=== PATIENT | female | born 1995 | race Caucasian/White ===

== ENCOUNTER 2020-04-17 18:19 | Emergency (ER) | payer SELFPAY ==
[~2020-04-17] VITALS: Ht 170.2 cm; Wt 65.9 kg
[~2020-04-17 18:19] MED LIST: ABILIFY5 MG PO; ADVIL200 MG PO; ALBUTEROL INHALER; AMOXICILLIN 50500 MG PO; ANTIVERT 25MG25 MG PO; BIRTHCONTROL; DEPAKOTE500 MG PO; DEPO MEDROL80 MG/ML IJ; DEPO-PROVER150 MG/M1 IM; DESYREL 50MG50 MG PO; FLAGYL500 MG PO; IBUPROFEN2; KLOR-CON M2020 MEQ PO; LAMICTAL 25MG T25 MG PO; LATUDA40 MG PO; LEXAPRO 10MG10 MG PO; LEXAPRO20 MG PO; MIRENA52 MG IU; MOTRIN 600600 MG/TAB PO; NAPROSYN500 MG PO; NO HOME MEDICATIONS; NORCO 325 MG-51 TAB PO; NORCO 325 MG-7.1 TAB PO; PEN-VEE K500 MG PO; PEPCID 20MG TAB20 MG PO; PERCOCET 325 MG1 TA2 PO; PHENERGAN 25 TA25 MG PO; PHENERGAN25 MG RC; PRENATAL1 TA1 PO; PRILOTC; PROAIR HFA0.09 MG/AC; SEPTRA SUS200/5-40/5 PO; SEROQUEL 1100 MG/TAB PO; SEROQUEL 200MG200 MG PO; SEROQUEL XR300 MG PO; SEROQUEL XR50 MG PO; TYLENOL 325MG325 MG PO; ULTRAM 50MG TAB50 MG PO; VENTOLIN0.09 MG IH; ZOFRAN 4MG T4 MG/TAB PO; ZOFRAN ODT4 MG PO; ZOFRAN ODT8 MG PO; ZOLOFT 100MG100 MG PO
[2020-04-17 18:24] VITALS: TEMP 97.8
[2020-04-17 18:59] LABS: COLLECTION METHOD CLEAN CATCH
[2020-04-17 19:04] LABS: BASO # 0.1 (0.0-0.2); BASO % 0.8 % (0.0-2.0); EOS # 0.4 (0.0-0.7); EOS % 5.9 % (0-4.0); GRAN # 3.6 (1.4-6.5); GRAN % 58.2 % (42.2-75.2); HEMOGLOBIN 13.6 g/dl (12.5-16.0); LYMPH # 1.7 (1.2-3.4); LYMPH % 27.2 % (20.0-51.0); MEAN CELL VOLUME 91 fl (80.0-100.0); MEAN CORPUSCULAR HEMOGLOBIN 29 pg (27.0-31.0); MEAN CORPUSCULAR HGB CONC 32 g/dl (33.0-37.0); MEAN PLATELET VOLUME 10.5 fl (7.4-10.4); MONO # 0.5 (0.1-0.6); MONO % 7.7 % (1.7-9.3); PLATELET COUNT 204 K/mm3 (130-400); RED BLOOD COUNT 4.62 M/mm3 (4.10-5.30); REDCELL DISTRIBUTION WIDTH-CV 12.3 % (11.5-14.5)
[2020-04-17 19:07] LABS: MUCOUS Present /lpf; PH 5 (5-8); SQUAMOUS EPITHELIAL 0-2 /hpf; URINE APPEARANCE Clear; URINE BACTERIA None Seen /hpf; URINE BILIRUBIN Negative (NEGATIVE); URINE BLOOD Negative (NEGATIVE); URINE COLOR Yellow; URINE GLUCOSE Negative (NEGATIVE); URINE KETONE Negative (NEGATIVE); URINE LEUKOCYTE ESTERASE Negative (NEGATIVE); URINE NITRATE Negative (NEGATIVE); URINE PROTEIN(semi-quant) Negative (NEGATIVE); URINE RBC 0-2 /hpf
[2020-04-17 19:13] LABS: ALANINE AMINOTRANSFERASE 11 U/L (4-34); ALBUMIN 4.1 gm/dL (3.5-5.0); ALKALINE PHOSPHATASE 95 U/L (50-136); ANION GAP 6 mmol/L (7-16); AST,SGOT 17 U/L (15-37); BILIRUBIN,TOTAL 0.4 mg/dL (0.0-1.0); BLOOD UREA NITROGEN 9 mg/dL (7-17); CALCIUM 9.2 mg/dL (8.4-10.2); CARBON DIOXIDE 27 mmol/L (22-30); CHLORIDE 105 mmol/L (98-107); CREATININE, serum 0.62 (0.52-1.25); GLUCOSE 81 mg/dL (74-106); POTASSIUM 3.8 mmol/L (3.4-5.0); SODIUM 139 mmol/L (137-145)
[2020-04-17 19:14] LABS: C-REACTIVE PROTEIN < 0.5 mg/dL (0.0-0.9)
[2020-04-17 19:35] VITALS: BP 110/78; PULSE 78
== END 2020-04-17 19:35 | disposition home or self-care (01) ==
LOC: COL.ER 18:19
PROVIDERS: Emergency Medicine
DX: R53.81 Other malaise (principal); R53.83 Other fatigue; F17.210 Nicotine dependence, cigarettes, uncomplicated; Z98.51 Tubal ligation status

== ENCOUNTER 2020-08-04 00:32 | Emergency (ER) | payer SELFPAY ==
[~2020-08-04] VITALS: Ht 170.2 cm; Wt 66.8 kg
[2020-08-04 00:46] VITALS: TEMP 97.9
[2020-08-04 01:11] LABS: COLLECTION METHOD CLEAN CATCH
[2020-08-04 01:18] LABS: MUCOUS Present /lpf; PH 5 (5-8); SQUAMOUS EPITHELIAL 0-2 /hpf; URINE APPEARANCE Clear; URINE BACTERIA None Seen /hpf; URINE BILIRUBIN Negative (NEGATIVE); URINE BLOOD Negative (NEGATIVE); URINE COLOR Yellow; URINE GLUCOSE Negative (NEGATIVE); URINE KETONE Trace (NEGATIVE); URINE LEUKOCYTE ESTERASE Negative (NEGATIVE); URINE NITRATE Negative (NEGATIVE); URINE PROTEIN(semi-quant) Negative (NEGATIVE); URINE RBC 0-2 /hpf
[2020-08-04 02:12] LABS: BASO # 0.1 (0.0-0.2); BASO % 1.1 % (0.0-2.0); EOS # 0.3 (0.0-0.7); EOS % 5.6 % (0-4.0); GRAN # 2.3 (1.4-6.5); GRAN % 42.9 % (42.2-75.2); HEMATOCRIT 41.9 % (37.0-47.0); LYMPH # 2.1 (1.2-3.4); LYMPH % 39.5 % (20.0-51.0); MEAN CELL VOLUME 87 fl (80.0-100.0); MEAN CORPUSCULAR HEMOGLOBIN 29 pg (27.0-31.0); MEAN CORPUSCULAR HGB CONC 33 g/dl (33.0-37.0); MEAN PLATELET VOLUME 10.6 fl (7.4-10.4); MONO # 0.6 (0.1-0.6); MONO % 10.9 % (1.7-9.3); PLATELET COUNT 199 K/mm3 (130-400); RED BLOOD COUNT 4.81 M/mm3 (4.10-5.30)
[2020-08-04 02:27] LABS: ALBUMIN 4.6 gm/dL (3.5-5.0); BILIRUBIN,TOTAL 0.4 mg/dL (0.0-1.0); CALCIUM 9.1 mg/dL (8.4-10.2); CREATININE, serum 0.64 (0.52-1.25); POTASSIUM 3.9 mmol/L (3.4-5.0)
[2020-08-04] MEDS ORDERED: ZOFRAN ODT4 MG PO (02:38)
[2020-08-04 02:50] VITALS: BP 115/68; PULSE 100
== END 2020-08-04 02:50 | disposition home or self-care (01) ==
LOC: COL.ER 00:32
PROVIDERS: Family Medicine
DX: R11.2 Nausea with vomiting, unspecified (principal); F17.210 Nicotine dependence, cigarettes, uncomplicated; Z88.8 Allergy status to other drugs, medicaments and biological substances; Z32.02 Encounter for pregnancy test, result negative

== ENCOUNTER 2020-08-11 23:15 | Emergency (ER) | payer SELFPAY ==
[~2020-08-11] VITALS: Ht 170.2 cm; Wt 68.6 kg
[2020-08-12 01:15] LABS: COLLECTION METHOD CLEAN CATCH
[2020-08-12 01:23] LABS: MUCOUS Present /lpf; PH 5 (5-8); SQUAMOUS EPITHELIAL 0-2 /hpf; URINE APPEARANCE Clear; URINE BACTERIA None Seen /hpf; URINE BILIRUBIN Negative (NEGATIVE); URINE BLOOD 2+ (NEGATIVE); URINE COLOR Yellow; URINE GLUCOSE Negative (NEGATIVE); URINE KETONE Negative (NEGATIVE); URINE LEUKOCYTE ESTERASE Negative (NEGATIVE); URINE NITRATE Negative (NEGATIVE); URINE PROTEIN(semi-quant) Negative (NEGATIVE); URINE RBC 0-2 /hpf
[2020-08-12 01:55] VITALS: BP 142/68; PULSE 73; TEMP 98
== END 2020-08-12 01:57 | disposition home or self-care (01) ==
LOC: COL.ER 23:15
PROVIDERS: Nurse Practitioner
DX: R10.2 Pelvic and perineal pain (principal); R11.2 Nausea with vomiting, unspecified; Z88.8 Allergy status to other drugs, medicaments and biological substances
CPT/HCPCS: J1885; J2550

== ENCOUNTER 2020-10-07 22:50 | Emergency (ER) | payer SELFPAY ==
[~2020-10-07] VITALS: Ht 170.2 cm; Wt 69.1 kg
[2020-10-07 23:55] VITALS: TEMP 98
[2020-10-08] MEDS ORDERED: ZOFRAN ODT4 MG PO (02:12)
[2020-10-08 02:21] VITALS: BP 114/67; PULSE 94
== END 2020-10-08 02:20 | disposition home or self-care (01) ==
LOC: COL.ER 22:50
DX: R11.10 Vomiting, unspecified (principal); F17.210 Nicotine dependence, cigarettes, uncomplicated; Z20.822 Contact with and (suspected) exposure to COVID-19; Z88.8 Allergy status to other drugs, medicaments and biological substances

== ENCOUNTER 2020-10-10 23:27 | Emergency (ER) | payer SELFPAY ==
[~2020-10-10] VITALS: Ht 170.2 cm; Wt 70.5 kg
[2020-10-10 23:39] VITALS: BP 121/87; TEMP 98.4
[2020-10-11 01:19] LABS: BASO # 0.1 (0.0-0.2); BASO % 0.9 % (0.0-2.0); EOS # 0.3 (0.0-0.7); EOS % 5.4 % (0-4.0); GRAN # 2.7 (1.4-6.5); GRAN % 51.1 % (42.2-75.2); HEMATOCRIT 41.3 % (37.0-47.0); HEMOGLOBIN 13.4 g/dl (12.5-16.0); LYMPH # 1.8 (1.2-3.4); LYMPH % 32.8 % (20.0-51.0); MEAN CELL VOLUME 90 fl (80.0-100.0); MEAN CORPUSCULAR HEMOGLOBIN 29 pg (27.0-31.0); MEAN CORPUSCULAR HGB CONC 32 g/dl (33.0-37.0); MEAN PLATELET VOLUME 10.4 fl (7.4-10.4); MONO # 0.5 (0.1-0.6); MONO % 9.6 % (1.7-9.3); PLATELET COUNT 210 K/mm3 (130-400); RED BLOOD COUNT 4.58 M/mm3 (4.10-5.30); REDCELL DISTRIBUTION WIDTH-CV 12.2 % (11.5-14.5)
[2020-10-11 01:29] LABS: ALBUMIN 4.1 gm/dL (3.5-5.0); BILIRUBIN,TOTAL 0.2 mg/dL (0.0-1.0); CREATININE, serum 0.67 (0.52-1.25); POTASSIUM 3.8 mmol/L (3.4-5.0); TOTAL PROTEIN 6.6 gm/dL (6.4-8.2)
[2020-10-11 02:00] LABS: COLLECTION METHOD CLEAN CATCH
[2020-10-11 02:07] LABS: MUCOUS Present /lpf; PH 5 (5-8); URINE APPEARANCE Hazy; URINE BACTERIA None Seen /hpf; URINE BILIRUBIN Negative (NEGATIVE); URINE BLOOD 3+ (NEGATIVE); URINE COLOR Yellow; URINE GLUCOSE Negative (NEGATIVE); URINE KETONE Negative (NEGATIVE); URINE LEUKOCYTE ESTERASE Negative (NEGATIVE); URINE NITRATE Negative (NEGATIVE); URINE PROTEIN(semi-quant) 1+ (NEGATIVE); URINE RBC >50 /hpf
[2020-10-11] MEDS ORDERED: ZOFRAN ODT4 MG PO (02:11)
[2020-10-11] MEDS ORDERED: PEPCID 20MG TAB20 MG PO (02:11)
[2020-10-11 03:02] VITALS: PULSE 95
== END 2020-10-11 03:02 | disposition home or self-care (01) ==
LOC: COL.ER 23:27
PROVIDERS: Emergency Medicine
DX: R10.33 Periumbilical pain (principal); R11.2 Nausea with vomiting, unspecified; F17.210 Nicotine dependence, cigarettes, uncomplicated; Z20.822 Contact with and (suspected) exposure to COVID-19
CPT/HCPCS: J2405; J2765; J7030

== ENCOUNTER 2020-10-13 04:26 | Emergency (ER) | payer SELFPAY ==
[2020-10-13 04:54] LABS: BASO % 0.7 % (0.0-2.0); EOS # 0.3 (0.0-0.7); EOS % 6.2 % (0-4.0); GRAN # 2.8 (1.4-6.5); GRAN % 51.4 % (42.2-75.2); HEMATOCRIT 42.1 % (37.0-47.0); HEMOGLOBIN 13.7 g/dl (12.5-16.0); LYMPH # 1.7 (1.2-3.4); LYMPH % 31.8 % (20.0-51.0); MEAN CELL VOLUME 91 fl (80.0-100.0); MEAN CORPUSCULAR HEMOGLOBIN 30 pg (27.0-31.0); MEAN CORPUSCULAR HGB CONC 33 g/dl (33.0-37.0); MEAN PLATELET VOLUME 10.5 fl (7.4-10.4); MONO # 0.5 (0.1-0.6); MONO % 9.7 % (1.7-9.3); PLATELET COUNT 223 K/mm3 (130-400); RED BLOOD COUNT 4.65 M/mm3 (4.10-5.30); REDCELL DISTRIBUTION WIDTH-CV 12.2 % (11.5-14.5)
[2020-10-13 05:07] LABS: ALANINE AMINOTRANSFERASE 14 U/L (4-34); ALBUMIN 4.3 gm/dL (3.5-5.0); ALCOHOL(ethanol),MEDICAL < 10 mg/dL; ALKALINE PHOSPHATASE 82 U/L (50-136); ANION GAP 4 mmol/L (7-16); AST,SGOT 22 U/L (15-37); BILIRUBIN,TOTAL 0.4 mg/dL (0.0-1.0); BLOOD UREA NITROGEN 11 mg/dL (7-17); CALCIUM 8.8 mg/dL (8.4-10.2); CARBON DIOXIDE 29 mmol/L (22-30); CHLORIDE 105 mmol/L (98-107); CREATINE KINASE 34 U/L (30-135); CREATININE, serum 0.56 (0.52-1.25); GLUCOSE 94 mg/dL (74-106); LIPASE 48 U/L (23-300); POTASSIUM 3.4 mmol/L (3.4-5.0); SODIUM 137 mmol/L (137-145)
[2020-10-13 06:14] LABS: COLLECTION METHOD CLEAN CATCH
[2020-10-13 06:19] LABS: MUCOUS Present /lpf; PH 6 (5-8); SQUAMOUS EPITHELIAL 0-2 /hpf; URINE APPEARANCE Clear; URINE BACTERIA None Seen /hpf; URINE BILIRUBIN Negative (NEGATIVE); URINE BLOOD 3+ (NEGATIVE); URINE COLOR Yellow; URINE GLUCOSE Negative (NEGATIVE); URINE KETONE Negative (NEGATIVE); URINE LEUKOCYTE ESTERASE Negative (NEGATIVE); URINE NITRATE Negative (NEGATIVE); URINE PROTEIN(semi-quant) Negative (NEGATIVE); URINE RBC 0-2 /hpf; URINE WBC 0-2 /hpf
[2020-10-13 06:27] VITALS: BP 121/82
[2020-10-13 06:27] LABS: TRICYCLIC ANTIDEPRESS URINE NEGATIVE
[2020-10-13] MEDS ORDERED: MAGCITRATE PO (07:03)
[2020-10-13] MEDS ORDERED: COLACE 100100 MG/CAP PO (07:03)
[2020-10-13] MEDS ORDERED: SENNA-LAX8.6 MG PO (07:03)
[2020-10-13 07:15] VITALS: PULSE 62
== END 2020-10-13 07:15 | disposition home or self-care (01) ==
LOC: COL.ER 04:26
PROVIDERS: Emergency Medicine
DX: K59.00 Constipation, unspecified (principal); R05 Cough; R11.2 Nausea with vomiting, unspecified; R91.1 Solitary pulmonary nodule; Z20.822 Contact with and (suspected) exposure to COVID-19; Z32.02 Encounter for pregnancy test, result negative; Z88.8 Allergy status to other drugs, medicaments and biological substances
CPT/HCPCS: J2060; J2270; J2405; J7030; Q9967

== ENCOUNTER 2020-10-16 18:21 | Emergency (ER) | payer SELFPAY ==
[~2020-10-16] VITALS: Ht 170.2 cm; Wt 70.0 kg
[~2020-10-16 18:21] MED LIST changes: +COLACE 100100 MG/CAP PO; +MAGCITRATE PO; +SENNA-LAX8.6 MG PO
[2020-10-16 18:34] VITALS: TEMP 97.7
[2020-10-16] MEDS ORDERED: LIDODERM 5% PATC1 EA TP (19:45)
[2020-10-16] MEDS ORDERED: ZANAFLEX CAPSULE4 MG PO (19:45)
[2020-10-16] MEDS ORDERED: MEDROL 4MG DOSPA4 MG PO (19:45)
[2020-10-16 19:50] VITALS: BP 132/70; PULSE 64
== END 2020-10-16 19:50 | disposition home or self-care (01) ==
LOC: COL.ER 18:21
DX: G89.29 Other chronic pain (principal); M41.9 Scoliosis, unspecified; M54.9 Dorsalgia, unspecified; F17.210 Nicotine dependence, cigarettes, uncomplicated; Z88.8 Allergy status to other drugs, medicaments and biological substances
CPT/HCPCS: J1885

== ENCOUNTER 2021-02-18 22:54 | Emergency (ER) | payer OTHER ==
[~2021-02-18] VITALS: Ht 170.2 cm; Wt 62.3 kg
[~2021-02-18 22:54] MED LIST changes: +LIDODERM 5% PATC1 EA TP; +MEDROL 4MG DOSPA4 MG PO; +ZANAFLEX CAPSULE4 MG PO
[2021-02-18 23:00] VITALS: TEMP 99.2
[2021-02-18 23:40] LABS: COLLECTION METHOD CLEAN CATCH
[2021-02-18 23:43] LABS: BASO # 0.1 (0.0-0.2); BASO % 0.6 % (0.0-2.0); EOS # 0.2 (0.0-0.7); EOS % 2.2 % (0-4.0); GRAN # 7.4 (1.4-6.5); GRAN % 68.8 % (42.2-75.2); HEMATOCRIT 49.7 % (37.0-47.0); HEMOGLOBIN 16.9 g/dl (12.5-16.0); LYMPH # 2.1 (1.2-3.4); LYMPH % 19.2 % (20.0-51.0); MEAN CELL VOLUME 86 fl (80.0-100.0); MEAN CORPUSCULAR HEMOGLOBIN 29 pg (27.0-31.0); MEAN CORPUSCULAR HGB CONC 34 g/dl (33.0-37.0); MEAN PLATELET VOLUME 10.7 fl (7.4-10.4); MONO % 8.9 % (1.7-9.3); PLATELET COUNT 235 K/mm3 (130-400); RED BLOOD COUNT 5.81 M/mm3 (4.10-5.30)
[2021-02-18 23:49] LABS: MUCOUS Present /lpf; PH 7 (5-8); URINE APPEARANCE Hazy; URINE BACTERIA None Seen /hpf; URINE BILIRUBIN Positive (NEGATIVE); URINE BLOOD Negative (NEGATIVE); URINE COLOR Amber; URINE GLUCOSE Negative (NEGATIVE); URINE KETONE Trace (NEGATIVE); URINE LEUKOCYTE ESTERASE Negative (NEGATIVE); URINE NITRATE Negative (NEGATIVE); URINE PROTEIN(semi-quant) 2+ (NEGATIVE); URINE UROBILINOGEN >=4.0 mg/dL (NEGATIVE)
[2021-02-18 23:54] LABS: ALBUMIN 5.5 gm/dL (3.5-5.0); BILIRUBIN,TOTAL 0.8 mg/dL (0.0-1.0); CALCIUM 10.5 mg/dL (8.4-10.2); CREATININE, serum 0.61 (0.52-1.25); POTASSIUM 3.5 mmol/L (3.4-5.0); TOTAL PROTEIN 9.6 gm/dL (6.4-8.2)
[2021-02-18 23:58] LABS: TRICYCLIC ANTIDEPRESS URINE NEGATIVE
[2021-02-19] MEDS ORDERED: ZOFRAN ODT4 MG PO (00:29)
[2021-02-19 00:40] VITALS: BP 120/65; PULSE 91
== END 2021-02-19 00:40 | disposition home or self-care (01) ==
LOC: COL.ER 22:54
PROVIDERS: Emergency Medicine
DX: N91.2 Amenorrhea, unspecified (principal); R11.15 Cyclical vomiting syndrome unrelated to migraine; F44.81 Dissociative identity disorder; D45 Polycythemia vera; F17.210 Nicotine dependence, cigarettes, uncomplicated; Z32.02 Encounter for pregnancy test, result negative; Z88.8 Allergy status to other drugs, medicaments and biological substances
CPT/HCPCS: J1200; J1630; J2060; J7030